=== PATIENT | female | born 1935 | race Caucasian/White ===

== ENCOUNTER → 2017-08-31 | Outpatient (CLI) | payer OTHER ==
[2017-08-31 09:15] LABS: Basophils # (auto) 0 uL; Basophils % (auto) 0.4 % (0.0-2.0); Eosinophils # (auto) 0.3 uL; Eosinophils % (auto) 3.5 % (0.0-7.0); Hematocrit 47.8 % (36.0-46.0); Hemoglobin 15.8 g/dL (12.2-16.2); Lymphocytes # (auto) 3.6 uL; Lymphocytes % (auto) 39.8 % (10.0-50.0); Mean Corpuscular Hemoglobin 31.6 pg (28.0-32.0); Mean Corpuscular Hgb Conc. 33.1 g/dL (32.0-36.0); Mean Corpuscular Volume 95.3 fL (80.0-100.0); Monocytes # (auto) 0.5 uL; Monocytes % (auto) 5.1 % (0.0-12.0); Neutrophils # (auto) 4.6 uL; Neutrophils % (auto) 51.2 % (37.0-80.0); Nucleated Red Blood Cells % 0.1 %; Platelet Count (auto) 264 10^3/uL (140-450); Red Blood Cells 5.02 10^6/uL (4.0-5.20); Red Cell Distribution Width 13.9 % (11.8-14.3); White Blood Cell 9.1 10^3/uL (4.4-10.8)
[2017-08-31 09:42] LABS: Albumin 3.6 g/dL (3.4-5.0); BUN/Creatinine Ratio 24.7; Bilirubin, Total 0.4 mg/dL (0.2-1.0); Calcium 9.8 mg/dL (8.5-10.1)
== END | disposition home or self-care (01) ==
LOC: LAB 08:22
PROVIDERS: ATTEND Physician Assistant
DX: I10 Essential (primary) hypertension (principal); M47.812 Spondylosis without myelopathy or radiculopathy, cervical region; M81.0 Age-related osteoporosis without current pathological fracture; G62.9 Polyneuropathy, unspecified; R53.82 Chronic fatigue, unspecified
CPT/HCPCS: 36415; 80053; 80061; 83036; 84403; 85025

== ENCOUNTER → 2018-12-13 | Outpatient (CLI) | payer OTHER ==
[2018-12-13 08:46] LABS: Albumin 3.5 g/dL (3.4-5.0); Calcium 9.2 mg/dL (8.5-10.1)
[2018-12-13 08:51] LABS: BUN/Creatinine Ratio 28.6; Bilirubin, Total 0.5 mg/dL (0.2-1.0); Total Protein 7.1 g/dL (6.4-8.2)
[2018-12-13 08:58] LABS: Basophils # (auto) 0 uL; Basophils % (auto) 0.6 % (0.0-2.0); Eosinophils # (auto) 0.1 uL; Eosinophils % (auto) 1.5 % (0.0-7.0); Hematocrit 45.5 % (36.0-46.0); Hemoglobin 15.1 g/dL (12.2-16.2); Lymphocytes # (auto) 2.8 uL; Mean Corpuscular Hemoglobin 31.6 pg (28.0-32.0); Mean Corpuscular Hgb Conc. 33.2 g/dL (32.0-36.0); Mean Corpuscular Volume 95.3 fL (80.0-100.0); Monocytes # (auto) 0.6 uL; Monocytes % (auto) 6.8 % (0.0-12.0); Neutrophils # (auto) 5.2 uL; Neutrophils % (auto) 59.1 % (37.0-80.0); Platelet Count (auto) 202 10^3/uL (140-450); Red Blood Cells 4.78 10^6/uL (4.0-5.20); White Blood Cell 8.8 10^3/uL (4.4-10.8)
== END | disposition home or self-care (01) ==
LOC: LAB 07:54
PROVIDERS: ATTEND Physician Assistant
DX: Z00.00 Encounter for general adult medical examination without abnormal findings (principal); M81.0 Age-related osteoporosis without current pathological fracture; G62.9 Polyneuropathy, unspecified
CPT/HCPCS: 36415; 80053; 80061; 85025

== ENCOUNTER 2019-02-02 11:55 | Inpatient (IN) | payer OTHER ==
[~2019-02-02] VITALS: Ht 147.3 cm; Wt 68.0 kg
[2019-02-02 13:17] LABS: Basophils # (auto) 0.1 uL; Basophils % (auto) 0.6 % (0.0-2.0); Eosinophils # (auto) 0.1 uL; Eosinophils % (auto) 0.7 % (0.0-7.0); Hematocrit 44.8 % (36.0-46.0); Lymphocytes # (auto) 3.3 uL; Lymphocytes % (auto) 21.7 % (10.0-50.0); Mean Corpuscular Hemoglobin 32.1 pg (28.0-32.0); Mean Corpuscular Hgb Conc. 33.4 g/dL (32.0-36.0); Monocytes # (auto) 0.7 uL; Monocytes % (auto) 4.9 % (0.0-12.0); Neutrophils % (auto) 72.1 % (37.0-80.0); Platelet Count (auto) 238 10^3/uL (140-450); Red Blood Cells 4.67 10^6/uL (4.0-5.20); Red Cell Distribution Width 14.2 % (11.8-14.3); White Blood Cell 15.2 10^3/uL (4.4-10.8)
[2019-02-02 13:31] LABS: Albumin 3.6 g/dL (3.4-5.0); Amylase 37 U/L (25-115); Anion Gap 13 (5-15); Blood Urea Nitrogen 17 mg/dL (7-18); Carbon Dioxide 25 mmol/L (21-32); Chloride 107 mmol/L (98-107); Glucose 146 mg/dL (74-106); Lipase 119 U/L (73-393); Magnesium 2.3 mg/dL (1.6-2.6); Potassium 3.7 mmol/L (3.5-5.1); Sodium 145 mmol/L (136-145)
[2019-02-02 13:38] LABS: Alanine Aminotransferase 30 U/L (13-56); Alkaline Phosphatase 50 U/L (45-117); Aspartate Aminotransferase 26 U/L (15-37); BUN/Creatinine Ratio 18.7; Bilirubin, Total 0.4 mg/dL (0.2-1.0); GFR African American 76 mL/min; GFR Non-African American 63 mL/min; Total Protein 7.4 g/dL (6.4-8.2)
[2019-02-02] MEDS ORDERED: SODIUM CHLORIDE 0.9% 1,000 ML IVB ONE (14:13)
[2019-02-02] MEDS ORDERED: ONDANSETRON HCL 4 MG/2 ML VIAL IV ONE (14:15)
[2019-02-02] MEDS ORDERED: MORPHINE SULF INJ 2 MG/ML SYRINGE 1ML IV ONE (14:15)
[2019-02-02] MEDS ORDERED: SODIUM CHLORIDE 0.9% 1,000 ML IV ONE (14:15)
[2019-02-02 15:08] LABS: INR 0.94 (0.9-1.15); Partial Thromboplastin Time 21.7 sec (23.64-32.05)
[2019-02-02] MEDS ORDERED: ONDANSETRON HCL 4 MG/2 ML VIAL IV PRN (16:45)
[2019-02-02] MEDS ORDERED: NITROGLYCERIN 0.4 MG SL TAB SL PRN (16:45)
[2019-02-02] MEDS ORDERED: ACETAMINOPHEN 500 MG TAB PO PRN (16:45)
[2019-02-02] MEDS ORDERED: MORPHINE SULF INJ 2 MG/ML SYRINGE 1ML IV PRN ×2 (16:45)
[2019-02-02 16:50] LABS: Urine Bacteria FEW /hpf (None Seen); Urine Blood 1+ /uL (Negative); Urine Specific Gravity 1.011 (1.001-1.035); Urine WBC 45 /hpf (0 - 5)
--- NOTE | 2019-02-02 18:00 | NUR ---
Telemetry admit from ER LILIYA BARNETTIAN admitted to Telemetry unit after SBAR received. Patient oriented to SHANDRA DIAMOND, RN primary RN, unit, room, bed, and unit policies regarding patient care and visiting hours. Patient alert and awake. No s/s of distress or SOB. Patient denies any pain at this time. Patient encouraged to call if they need something. All questions and concerns addressed, patient verbalized understanding. Bed in lowest and locked position with side rails upx2 and call light within reach.
--- NOTE | 2019-02-02 18:00 | NUR ---
RECEIVED REPORT FROM ANGELA MEZA.
[2019-02-02] MEDS: SODIUM CHLORIDE 0.9% 1,000 ML IV SCH (18:03)
--- NOTE | 2019-02-02 19:15 | NUR ---
Opening Shift Note Report received from day shift RN. Assumed care of patient. Patient sitting in bed awake and alert x4. No S/S of distress or SOB noted. Patient denies pain at this time. Bed in lowest position, locked with side rails up x2, and call light left within reach. Instructed on POC and to call for assist PRN, will continue to monitor for changes Q1hr and PRN.
[2019-02-02] MEDS: TAMSULOSIN HYDROCHLORIDE 0.4 MG CAP PO SCH (20:05)
[2019-02-02] MEDS: cefTRIAXone 1GM/50ML D5W 50 ML IV SCH (20:07)
[2019-02-02 22:29] VITALS: BP 148/63
[2019-02-03] MEDS: SODIUM CHLORIDE 0.9% 1,000 ML IV SCH ×4 (00:42→21:36)
[2019-02-03 06:00] LABS: Basophils # (auto) 0.1 uL; Basophils % (auto) 0.6 % (0.0-2.0); Eosinophils # (auto) 0 uL; Eosinophils % (auto) 0.2 % (0.0-7.0); Hematocrit 39.5 % (36.0-46.0); Hemoglobin 13.2 g/dL (12.2-16.2); Lymphocytes % (auto) 13.8 % (10.0-50.0); Mean Corpuscular Hemoglobin 31.7 pg (28.0-32.0); Mean Corpuscular Hgb Conc. 33.3 g/dL (32.0-36.0); Mean Corpuscular Volume 95.1 fL (80.0-100.0); Monocytes # (auto) 1.1 uL; Monocytes % (auto) 7.8 % (0.0-12.0); Neutrophils % (auto) 77.6 % (37.0-80.0); Platelet Count (auto) 176 10^3/uL (140-450); Red Blood Cells 4.16 10^6/uL (4.0-5.20); Red Cell Distribution Width 14.2 % (11.8-14.3); White Blood Cell 14.2 10^3/uL (4.4-10.8)
[2019-02-03 06:17] VITALS: BP 130/67
[2019-02-03 06:27] LABS: BUN/Creatinine Ratio 24.3; Calcium 8.3 mg/dL (8.5-10.1); Potassium 3.8 mmol/L (3.5-5.1)
[2019-02-03 06:40] LABS: Cholesterol 161 mg/dL (< 200); Triglycerides 86 mg/dL (< 150)
[2019-02-03 06:42] LABS: HDL Cholesterol 76 mg/dL (40-59); LDL Cholesterol 80 mg/dL (< 100)
--- NOTE | 2019-02-03 07:22 | NUR ---
Opening Shift Note Assumed care of patient, awake and alert. No S/S of distress or SOB. Pt denies any pain at this time. Bed in lowest and locked position with side rails up x2 and call light within reach. Instructed on POC and to call for assist PRN, will continue to monitor for changes Q1hr and PRN.
[2019-02-03 08:23] VITALS: BP 123/67
[2019-02-03 08:59] LABS: Folate (Folic Acid) 14.29 ng/mL (5.38-24)
[2019-02-03] MEDS: FAMOTIDINE 20 MG TAB PO SCH (09:31)
[2019-02-03] MEDS: HYDROcodone-ACET 5/325MG TAB PO PRN (09:35)
[2019-02-03 12:55] VITALS: BP 107/54
[2019-02-03] MEDS ORDERED: MANNITOL FTV 25% 12.5 GM/50 ML 50 ML IV ONE (13:30)
--- NOTE | 2019-02-03 16:30 | NUR ---
Thapa catheter insertion Patient assessed and determined to be in need of thapa catheter. Order obtained from MD. Patient educated on catheter and reason for insertion. All questions answered. Thapa catheter 16 guage Danish inserted with clean sterile technique. Patient tolerated well.
[2019-02-03 17:00] VITALS: BP 130/55
[2019-02-03] MEDS: cefTRIAXone 1GM/50ML D5W 50 ML IV SCH (17:41)
[2019-02-03] MEDS: TAMSULOSIN HYDROCHLORIDE 0.4 MG CAP PO SCH (17:41)
--- NOTE | 2019-02-03 19:50 | NUR ---
RECEIVED PATIENT IN BED, AAOX4. FAMILY IS IN THE ROOM. INTRODUCED MYSELF TO THE PATIENT. NO DISTRESS NOTED. AFEBRILE. MILD BLE WEAKNESS NOTED. POCS DISCUSSED WITH PATIENT AND FAMILY AND SHOWED UNDERSTANDING. BED KEPT ON LOWEST POSITION. SIDE RAILS UP. CALL LIGHT/TABLE IN REACH. KEPT COMFORTABLE.
[2019-02-03 22:00] VITALS: BP 122/69
[2019-02-04 05:50] VITALS: BP 150/75
--- NOTE | 2019-02-04 06:08 | NUR ---
ON BED, AWAKE. STABLE. NO DISTRESS NOTED. FOR MORE CARE AND MANAGEMENT.
[2019-02-04 06:57] LABS: Basophils # (auto) 0.1 uL; Basophils % (auto) 0.5 % (0.0-2.0); Eosinophils # (auto) 0.1 uL; Eosinophils % (auto) 1.3 % (0.0-7.0); Hematocrit 38.4 % (36.0-46.0); Hemoglobin 12.8 g/dL (12.2-16.2); Lymphocytes # (auto) 1.9 uL; Lymphocytes % (auto) 16.7 % (10.0-50.0); Mean Corpuscular Hemoglobin 32.1 pg (28.0-32.0); Mean Corpuscular Hgb Conc. 33.3 g/dL (32.0-36.0); Mean Corpuscular Volume 96.1 fL (80.0-100.0); Monocytes # (auto) 0.8 uL; Monocytes % (auto) 6.8 % (0.0-12.0); Neutrophils # (auto) 8.5 uL; Neutrophils % (auto) 74.7 % (37.0-80.0); Nucleated Red Blood Cells % 0.1 %; Platelet Count (auto) 145 10^3/uL (140-450); Red Blood Cells 3.99 10^6/uL (4.0-5.20); Red Cell Distribution Width 14.3 % (11.8-14.3); White Blood Cell 11.3 10^3/uL (4.4-10.8)
--- NOTE | 2019-02-04 07:15 | NUR ---
Opening Shift Note Assumed care of patient, awake and alert. No S/S of distress or SOB. Pt denies any pain at this time. Bed in lowest and locked position with side rails up x2 and call light within reach. Instructed on POC and to call for assist PRN, will continue to monitor for changes Q1hr and PRN.family at bedside visiting.
[2019-02-04 07:36] LABS: BUN/Creatinine Ratio 16.1; Calcium 8.1 mg/dL (8.5-10.1); Potassium 3.6 mmol/L (3.5-5.1)
--- NOTE | 2019-02-04 08:20 | NUR ---
[facility] HERE TO SEE AND EXAMINED PATIENT,STATED PATIENT CLEARED FOR DISCHARGE
[2019-02-04] MEDS: SODIUM CHLORIDE 0.9% 1,000 ML IV SCH ×3 (08:42→21:41)
[2019-02-04 09:00] VITALS: BP 139/71
[2019-02-04] MEDS: FAMOTIDINE 20 MG TAB PO SCH (10:18)
[2019-02-04 13:00] VITALS: BP 157/89
--- NOTE | 2019-02-04 15:37 | NUR ---
RESTING QUIETLU NO DISTRESS NO DISCOMFORT
[2019-02-04 17:00] VITALS: BP 171/81
--- NOTE | 2019-02-04 17:30 | NUR ---
[id number]
--- NOTE | 2019-02-04 18:00 | NUR ---
BP RE CHECKED 161/71
--- NOTE | 2019-02-04 18:15 | NUR ---
PAGED HOSPITALIST PRINTED CIRCUIT BOARDS PINNER,INFORMED OF HIGH BP RECEIVED ORDER,SEE ORDER WRITTEN.
[2019-02-04] MEDS: cefTRIAXone 1GM/50ML D5W 50 ML IV SCH (18:24)
[2019-02-04] MEDS: TAMSULOSIN HYDROCHLORIDE 0.4 MG CAP PO SCH (18:24)
[2019-02-04] MEDS ORDERED: amLODIPine BESYLATE 5 MG TAB PO ONE (18:30)
[2019-02-04 20:00] VITALS: BP 155/76
--- NOTE | 2019-02-04 20:00 | NUR ---
RECEIVED PATIENT IN BED, AAOX4. INTRODUCED MYSELF TO THE PATIENT. NO DISTRESS NOTED. AFEBRILE. MILD BLE WEAKNESS NOTED. COMPLAINED OF MILD HEADACHE. WILL MEDICATE PATIENT. IV ACCESS IS INFILTRATED. STARTED A NEW IV ACCESS ON THE LEFT FOREARM, GAUGE 22. BENIGN AND PATENT. POCS DISCUSSED WITH PATIENT AND SHOWED UNDERSTANDING. BED KEPT ON LOWEST POSITION. SIDE RAILS UP. CALL LIGHT/TABLE IN REACH. KEPT COMFORTABLE.
[2019-02-04] MEDS: HYDROcodone-ACET 5/325MG TAB PO PRN (21:41)
[2019-02-04 22:30] VITALS: BP 154/76
[2019-02-05] VITALS (7 sets, daily range): BP systolic 129–160; BP diastolic 69–77
--- NOTE | 2019-02-05 06:38 | NUR ---
ON BED, ASLEEP. STABLE. NO DISTRESS NOTED. FOR MORE CARE AND MANAGEMENT.
[2019-02-05 06:40] LABS: Basophils # (auto) 0.1 uL; Basophils % (auto) 0.6 % (0.0-2.0); Eosinophils # (auto) 0.1 uL; Eosinophils % (auto) 1.6 % (0.0-7.0); Hematocrit 40.1 % (36.0-46.0); Hemoglobin 13.4 g/dL (12.2-16.2); Lymphocytes # (auto) 1.9 uL; Lymphocytes % (auto) 20.8 % (10.0-50.0); Mean Corpuscular Hemoglobin 32.2 pg (28.0-32.0); Mean Corpuscular Hgb Conc. 33.5 g/dL (32.0-36.0); Mean Corpuscular Volume 96.1 fL (80.0-100.0); Monocytes # (auto) 0.9 uL; Monocytes % (auto) 9.5 % (0.0-12.0); Neutrophils # (auto) 6.1 uL; Neutrophils % (auto) 67.5 % (37.0-80.0); Platelet Count (auto) 159 10^3/uL (140-450); Red Blood Cells 4.17 10^6/uL (4.0-5.20); Red Cell Distribution Width 13.5 % (11.8-14.3)
[2019-02-05] MEDS: SODIUM CHLORIDE 0.9% 1,000 ML IV SCH ×2 (07:15→17:15)
--- NOTE | 2019-02-05 08:26 | NUR ---
RECEIVED CALL FROM [facility]INE SENSITIVITY POSITIVE FOR ESBL
[2019-02-05] MEDS: amLODIPine BESYLATE 5 MG TAB PO SCH (09:25)
[2019-02-05] MEDS: FAMOTIDINE 20 MG TAB PO SCH (09:25)
--- NOTE | 2019-02-05 10:17 | NUR ---
PATIENT MOVED TO ROOM 203 FOR CONTACT ISOLATION
--- NOTE | 2019-02-05 10:55 | NUR ---
MD VISIT DR. SOW MADE AWARE OF POSITIVE ESBL IN THE URINE RECEIVED ORDERS
[2019-02-05] MEDS ORDERED: ERTAPENEM SOD INJ 1 GM in SODIUM CHL 0.9% 50 ML IV ONE (11:00)
--- NOTE | 2019-02-05 11:31 | NUR ---
I faxed home IV ATB/home health order to [facility] and [facility].
--- NOTE | 2019-02-05 12:17 | NUR ---
Nutrition Assessment Notes please see attached link for complete assessment Est. Needs based on ABW (55 kg): 1265-1375kcal (23-25 kcal/kgBW), 55-60 gms pro (1.0-1.1 gms/kgBW). Will continue to monitor pertinent labs and reassess nutrient need prn Addendum: 02/05/19 at [address] Amended: Links added.
[2019-02-05] MEDS: NEOMYCIN-POLYM-HC 1% OTIC(EAR) SOLN 10ML LEFT EAR SCH ×2 (13:09→18:22)
--- NOTE | 2019-02-05 13:20 | NUR ---
LUCIO CATHETER DISCONTINUED ORDERED
--- NOTE | 2019-02-05 15:00 | NUR ---
PATIENT VOIDED NO DIFFICULTY
--- NOTE | 2019-02-05 15:05 | NUR ---
Midline Placement: Patient educated on need for midline placement. All risks and benefits explained and all questions and concerns addresses prior to procedure. 18g/10cm midline inserted via RT BASILIC vein using Ultrasound. Sterile technique utilized. Blood return obtained from SINGLE lumen and flushed easily with NS using proper technique. Midline secured with saline lock; biodisc and occlusive dressing applied. Primary RN notified. Midline lot # [id number].
--- NOTE | 2019-02-05 15:59 | NUR ---
I spoke with Naima at [facility], she said they are willing to accept this patient, I told her I would call her tomorrow when I have the actual discharge order. I also spoke with Neville at [facility], they are willing to accept this patient, I let him know that I would call tomorrow when I have the actual discharge order.
[2019-02-06] MEDS: SODIUM CHLORIDE 0.9% 1,000 ML IV SCH ×2 (03:15→13:29)
[2019-02-06 05:36] VITALS: BP 155/68
--- NOTE | 2019-02-06 07:45 | NUR ---
Opening Patient in bed, bed in lowest position, call light within reach. No distress noted at this time. Urology consult completed with Rosemarie, notes to have patient f/u for EDWL in 1-2 weeks post discharge. XR abd negative Abd/Pelvis ct L hydroureter nephrosis 4 mm calculus Diverticulosis ef 60% potassium 3.6 calcium 8.1 low aptt 21.7 urine culture esbl confirmed patient on isolation [facility] IV d/c thapa catheter prior discharge will f/u with morning assessment
[2019-02-06 09:00] VITALS: BP 151/73
[2019-02-06] MEDS ORDERED: NITROFURANTOIN (MONO) 100 mg CAP PO SCH (10:00)
[2019-02-06] MEDS ORDERED: ERTAPENEM SOD INJ 1 GM in SODIUM CHL 0.9% 50 ML IV SCH (10:00)
[2019-02-06] MEDS: amLODIPine BESYLATE 5 MG TAB PO SCH (10:56)
[2019-02-06] MEDS: FAMOTIDINE 20 MG TAB PO SCH (10:56)
[2019-02-06] MEDS: NEOMYCIN-POLYM-HC 1% OTIC(EAR) SOLN 10ML LEFT EAR SCH ×2 (10:57)
[2019-02-06 12:31] VITALS: BP 151/73
[2019-02-06 13:00] VITALS: BP 138/72
--- NOTE | 2019-02-06 13:16 | NUR ---
I spoke with Gloria at [facility] to let her know that patient is discharging home today, she said they will deliver between 8-10pm this evening-they will call patient/family to arrange the delivery. [facility]
--- NOTE | 2019-02-06 14:00 | NUR ---
I spoke with Naima at [facility] to let her know that patient is discharging home today, she said they will visit patient tomorrow. [facility] to deliver IV ATB to patient's home this evening-I relayed this information to nurse Oleary as well as giving her the phone numbers for both [facility] and [facility] to give to the patient/family.
--- NOTE | 2019-02-06 14:00 | NUR ---
Jillian taylor [facility] set up [phone] [facility] set up [phone]
--- NOTE | 2019-02-06 14:44 | NUR ---
assessment Patient is a 83 year old female who is alert and oriented. Prior to admission patient lived home with her friend and functioned independently. Patient informed me her PCP is Elisabeth Sevilla. Patient informed me she has help at home for the IV ABX. Patient has no need for DME. Patient has no advanced directive and does not want one at this time. Patient verbalized understanding and agreed to discharge plan home with IV ABX. Addendum: 02/06/19 at 1503 by Anay ROBERTS Amended: Links added.
== END 2019-02-06 16:54 | disposition home or self-care (01) | DRG 872 ==
LOC: ER 11:55 → OVERFLOW 11:56 → CENTRAL 18:19
PROVIDERS: ADMIT Nurse Practitioner Acute Care; ATTEND Internal Medicine
DX: A41.9 Sepsis, unspecified organism (principal); N13.6 Pyonephrosis; E66.9 Obesity, unspecified; E78.00 Pure hypercholesterolemia, unspecified; I12.9 Hypertensive chronic kidney disease with stage 1 through stage 4 chronic kidney disease, or unspecified chronic kidney disease; N18.3 Chronic kidney disease, stage 3 (moderate); H92.02 Otalgia, left ear; E78.5 Hyperlipidemia, unspecified; B96.20 Unspecified Escherichia coli [E. coli] as the cause of diseases classified elsewhere; M16.11 Unilateral primary osteoarthritis, right hip; Z16.12 Extended spectrum beta lactamase (ESBL) resistance; Z90.710 Acquired absence of both cervix and uterus; Z82.49 Family history of ischemic heart disease and other diseases of the circulatory system; Z87.440 Personal history of urinary (tract) infections; Z68.31 Body mass index [BMI] 31.0-31.9, adult; Z79.899 Other long term (current) drug therapy
CPT/HCPCS: 36415; 74018; 74176; 80048; 80053; 80061; 81001; 82150; 82607; 82746; 83690; 83735; 84425; 84443; 84484; 85025; 85610; 85730; 87086; 87088; 87186; 93005; 93306; 94761; 96374; 96375; G0378; J0696; J1335; J2405

== ENCOUNTER 2019-02-14 14:08 | Emergency (ER) | payer OTHER ==
[~2019-02-14] VITALS: Ht 147.3 cm; Wt 68.0 kg
[2019-02-14 14:43] LABS: Basophils # (auto) 0.1 uL; Basophils % (auto) 0.8 % (0.0-2.0); Eosinophils # (auto) 0.2 uL; Eosinophils % (auto) 1.9 % (0.0-7.0); Hematocrit 45.4 % (36.0-46.0); Hemoglobin 15.1 g/dL (12.2-16.2); Lymphocytes % (auto) 32.6 % (10.0-50.0); Mean Corpuscular Hemoglobin 31.7 pg (28.0-32.0); Mean Corpuscular Hgb Conc. 33.3 g/dL (32.0-36.0); Mean Corpuscular Volume 95.4 fL (80.0-100.0); Monocytes # (auto) 0.5 uL; Monocytes % (auto) 5.2 % (0.0-12.0); Neutrophils # (auto) 5.5 uL; Neutrophils % (auto) 59.5 % (37.0-80.0); Platelet Count (auto) 293 10^3/uL (140-450); Red Blood Cells 4.76 10^6/uL (4.0-5.20); Red Cell Distribution Width 13.5 % (11.8-14.3); White Blood Cell 9.2 10^3/uL (4.4-10.8)
[2019-02-14 15:03] LABS: Albumin 3.3 g/dL (3.4-5.0); Anion Gap 5 (5-15); Blood Urea Nitrogen 17 mg/dL (7-18); Calcium 9.2 mg/dL (8.5-10.1); Carbon Dioxide 29 mmol/L (21-32); Chloride 108 mmol/L (98-107); Glucose 152 mg/dL (74-106); Magnesium 2.3 mg/dL (1.6-2.6); Potassium 4.1 mmol/L (3.5-5.1); Sodium 142 mmol/L (136-145)
[2019-02-14 15:06] LABS: Alanine Aminotransferase 53 U/L (13-56); Alkaline Phosphatase 70 U/L (45-117); Aspartate Aminotransferase 45 U/L (15-37); Bilirubin, Total 0.2 mg/dL (0.2-1.0); GFR African American 87 mL/min; GFR Non-African American 72 mL/min; Total Protein 7.7 g/dL (6.4-8.2)
[2019-02-14] MEDS ORDERED: PANTOPRAZOLE 40 MG TAB PO ONE (16:00)
[2019-02-14 16:41] LABS: INR 0.95 (0.9-1.15); Partial Thromboplastin Time 25.4 sec (23.64-32.05)
[2019-02-14 18:19] VITALS: BP 143/69
== END 2019-02-14 18:24 | disposition home or self-care (01) ==
LOC: ER 14:08
DX: K29.70 Gastritis, unspecified, without bleeding (principal); E78.5 Hyperlipidemia, unspecified; Z90.710 Acquired absence of both cervix and uterus; Z87.442 Personal history of urinary calculi
CPT/HCPCS: 36415; 80053; 81002; 83735; 84484; 85025; 85610; 85730; 93005

== ENCOUNTER 2022-05-19 10:13 | Emergency (ER) | payer OTHER ==
[~2022-05-19] VITALS: Ht 147.3 cm; Wt 63.8 kg
[2022-05-19] MEDS ORDERED: cloNIDine HCL 0.1 MG TAB PO ONE (11:00)
[2022-05-19] MEDS ORDERED: AZIT1POW PO (11:51)
[2022-05-19] MEDS ORDERED: METH4PAK PO (11:51)
[2022-05-19] MEDS ORDERED: LOSA25TA38 PO (12:50)
[2022-05-19 12:55] VITALS: BP 126/75
== END 2022-05-19 13:01 | disposition home or self-care (01) ==
LOC: ER 10:13
DX: I16.0 Hypertensive urgency (principal); J20.9 Acute bronchitis, unspecified; E78.5 Hyperlipidemia, unspecified; I10 Essential (primary) hypertension; Z90.710 Acquired absence of both cervix and uterus; Z85.3 Personal history of malignant neoplasm of breast; Z20.822 Contact with and (suspected) exposure to COVID-19
CPT/HCPCS: 36415; 71045; 87426; 93005

== ENCOUNTER → 2022-05-23 | Outpatient (CLI) | payer OTHER ==
[~2022-05-23] MED LIST: AZIT1POW PO; LOSA25TA38 PO; METH4PAK PO
[2022-05-23 07:48] LABS: Basophils # (auto) 0.1 10 ^3/uL (0-0.2); Basophils % (auto) 0.6 % (0.0-2.0); Eosinophils # (auto) 0 10 ^3/uL (0-0.8); Hematocrit 48.4 % (36.0-46.0); Hemoglobin 15.7 g/dL (12.2-16.2); Lymphocytes # (auto) 2.5 10 ^3/uL (0.4-5.4); Lymphocytes % (auto) 17.8 % (10.0-50.0); Mean Corpuscular Hemoglobin 30.1 pg (28.0-32.0); Mean Corpuscular Hgb Conc. 32.4 g/dL (32.0-36.0); Monocytes # (auto) 0.6 10 ^3/uL (0-1.3); Monocytes % (auto) 4.1 % (0.0-12.0); Neutrophils # (auto) 11.1 10 ^3/uL (1.6-8.6); Neutrophils % (auto) 77.5 % (37.0-80.0); Red Cell Distribution Width 14.4 % (11.8-14.3); White Blood Cell 14.3 10^3/uL (4.4-10.8)
[2022-05-23 07:58] LABS: Urine Bacteria FEW /hpf (None Seen); Urine Blood Negative /uL (Negative); Urine Mucus FEW (None Seen); Urine Specific Gravity 1.015 (1.001-1.035); Urine WBC 8 /hpf (0 - 5)
[2022-05-23 08:29] LABS: Albumin 3.2 g/dL (3.4-5.0); BUN/Creatinine Ratio 19.8; Bilirubin, Total 0.4 mg/dL (0.2-1.0); Calcium 9.4 mg/dL (8.5-10.1); Potassium 4.9 mmol/L (3.5-5.1); Total Protein 7.3 g/dL (6.4-8.2)
== END | disposition home or self-care (01) ==
LOC: LAB 07:35
PROVIDERS: ATTEND Internal Medicine
DX: I10 Essential (primary) hypertension (principal)
CPT/HCPCS: 36415; 80053; 80061; 81001; 83036; 84439; 84443; 85025

== ENCOUNTER 2022-06-05 12:40 | Outpatient (CLI) | payer OTHER ==
[2022-06-05 13:11] LABS: Basophils # (auto) 0 10 ^3/uL (0-0.2); Basophils % (auto) 0.4 % (0.0-2.0); Eosinophils # (auto) 0.1 10 ^3/uL (0-0.8); Eosinophils % (auto) 1.3 % (0.0-7.0); Hematocrit 48.2 % (36.0-46.0); Hemoglobin 15.5 g/dL (12.2-16.2); Lymphocytes # (auto) 3.1 10 ^3/uL (0.4-5.4); Lymphocytes % (auto) 28.3 % (10.0-50.0); Mean Corpuscular Hemoglobin 30.1 pg (28.0-32.0); Mean Corpuscular Hgb Conc. 32.1 g/dL (32.0-36.0); Mean Corpuscular Volume 93.9 fL (80.0-100.0); Monocytes # (auto) 0.5 10 ^3/uL (0-1.3); Monocytes % (auto) 4.9 % (0.0-12.0); Neutrophils # (auto) 7.2 10 ^3/uL (1.6-8.6); Neutrophils % (auto) 65.1 % (37.0-80.0); Nucleated Red Blood Cells % 0.1 %; Red Blood Cells 5.13 10^6/uL (4.0-5.20); Red Cell Distribution Width 14.8 % (11.8-14.3)
[2022-06-05 13:45] LABS: Potassium 4.4 mmol/L (3.5-5.1)
[2022-06-05 13:57] LABS: BUN/Creatinine Ratio 24.2; Calcium 9.3 mg/dL (8.5-10.1)
== END 2022-06-05 12:50 | disposition home or self-care (01) ==
LOC: LAB 12:40
PROVIDERS: ATTEND Internal Medicine
DX: I10 Essential (primary) hypertension (principal)
CPT/HCPCS: 36415; 80048; 85025

== ENCOUNTER → 2022-06-20 | Outpatient (CLI) | payer OTHER ==
[2022-06-20 13:28] LABS: Basophils # (auto) 0.1 10 ^3/uL (0-0.2); Basophils % (auto) 0.7 % (0.0-2.0); Eosinophils # (auto) 0.2 10 ^3/uL (0-0.8); Eosinophils % (auto) 1.9 % (0.0-7.0); Hemoglobin 14.9 g/dL (12.2-16.2); Lymphocytes % (auto) 31.9 % (10.0-50.0); Mean Corpuscular Hemoglobin 30.9 pg (28.0-32.0); Mean Corpuscular Volume 93.6 fL (80.0-100.0); Monocytes # (auto) 0.3 10 ^3/uL (0-1.3); Monocytes % (auto) 3.4 % (0.0-12.0); Neutrophils # (auto) 5.9 10 ^3/uL (1.6-8.6); Neutrophils % (auto) 62.1 % (37.0-80.0); Nucleated Red Blood Cells % 0.1 %; Red Blood Cells 4.81 10^6/uL (4.0-5.20); Red Cell Distribution Width 14.8 % (11.8-14.3); White Blood Cell 9.4 10^3/uL (4.4-10.8)
[2022-06-20 14:03] LABS: Calcium 9.2 mg/dL (8.5-10.1); Potassium 3.8 mmol/L (3.5-5.1)
== END | disposition home or self-care (01) ==
LOC: LAB 12:56
PROVIDERS: ATTEND Internal Medicine
DX: I10 Essential (primary) hypertension (principal); D72.829 Elevated white blood cell count, unspecified
CPT/HCPCS: 36415; 80048; 85025

== ENCOUNTER → 2022-07-25 | Outpatient (CLI) | payer OTHER ==
[2022-07-25 15:53] LABS: BUN/Creatinine Ratio 36.8; Calcium 9.8 mg/dL (8.5-10.1); Potassium 3.6 mmol/L (3.5-5.1)
== END | disposition home or self-care (01) ==
LOC: LAB 15:15
PROVIDERS: ATTEND Internal Medicine
DX: I10 Essential (primary) hypertension (principal); M81.0 Age-related osteoporosis without current pathological fracture
CPT/HCPCS: 36415; 80048; 82306

== ENCOUNTER → 2022-08-07 | Outpatient (CLI) | payer OTHER ==
[2022-08-07 12:38] LABS: Potassium 3.7 mmol/L (3.5-5.1)
[2022-08-07 12:44] LABS: BUN/Creatinine Ratio 30.3
== END | disposition home or self-care (01) ==
LOC: LAB 11:02
PROVIDERS: ATTEND Internal Medicine
DX: I10 Essential (primary) hypertension (principal); N28.9 Disorder of kidney and ureter, unspecified
CPT/HCPCS: 36415; 80048

== ENCOUNTER → 2022-08-16 | Outpatient (CLI) | payer OTHER ==
[~2022-08-16] MED LIST changes: +BUPIVACAINE HCL 0.25% P/F 10 ML VIAL ONE; +IOHEXOL 300 MG/ML 100ML BOTTLE IJ ONE; +LIDOCAINE 2%HCL (LOCAL ANESTH.) INJ 10ml MDV ONE; +methylPREDNISolone ACETATE 80 MG/ML VL ONE
== END | disposition home or self-care (01) ==
LOC: XY 10:02
PROVIDERS: ATTEND Orthopaedic Surgery Adult Reconstructive Orthopaedic Surgery
DX: M19.012 Primary osteoarthritis, left shoulder (principal)
CPT/HCPCS: 20610; 73020; 76000; J1040; J2001; J3490; Q9967

== ENCOUNTER → 2022-09-05 | Outpatient (CLI) | payer OTHER ==
[~2022-09-05] MED LIST changes: -BUPIVACAINE HCL 0.25% P/F 10 ML VIAL ONE; -IOHEXOL 300 MG/ML 100ML BOTTLE IJ ONE; -LIDOCAINE 2%HCL (LOCAL ANESTH.) INJ 10ml MDV ONE; -methylPREDNISolone ACETATE 80 MG/ML VL ONE
[2022-09-05 15:56] LABS: BUN/Creatinine Ratio 40.3; Calcium 9.2 mg/dL (8.5-10.1); Potassium 4.1 mmol/L (3.5-5.1)
== END | disposition home or self-care (01) ==
LOC: LAB 15:01
PROVIDERS: ATTEND Internal Medicine
DX: N28.9 Disorder of kidney and ureter, unspecified (principal)
CPT/HCPCS: 36415; 80048

== ENCOUNTER → 2022-10-04 | Outpatient (CLI) | payer OTHER ==
[2022-10-04 12:50] LABS: Urine Bacteria FEW /hpf (None Seen); Urine Blood Negative /uL (Negative); Urine Specific Gravity 1.012 (1.001-1.035); Urine WBC 10 /hpf (0 - 5)
[2022-10-04 13:00] LABS: BUN/Creatinine Ratio 35.7 (10.0-20.0)
== END | disposition home or self-care (01) ==
LOC: LAB 12:09
PROVIDERS: ATTEND Internal Medicine
DX: I10 Essential (primary) hypertension (principal); N28.9 Disorder of kidney and ureter, unspecified
CPT/HCPCS: 36415; 80048; 81001

== ENCOUNTER → 2023-04-24 | Outpatient (CLI) | payer OTHER ==
[~2023-04-24] MED LIST changes: +LOSA25TA15 PO; -LOSA25TA38 PO
[2023-04-24 09:55] LABS: Basophils # (auto) 0.1 10 ^3/uL (0-0.2); Basophils % (auto) 0.8 % (0.0-2.0); Eosinophils # (auto) 0.4 10 ^3/uL (0-0.8); Eosinophils % (auto) 4.5 % (0.0-7.0); Hematocrit 40.5 % (36.0-46.0); Hemoglobin 13.6 g/dL (12.2-16.2); Lymphocytes % (auto) 37.1 % (10.0-50.0); Mean Corpuscular Hemoglobin 31.4 pg (28.0-32.0); Mean Corpuscular Hgb Conc. 33.5 g/dL (32.0-36.0); Mean Corpuscular Volume 93.8 fL (80.0-100.0); Monocytes # (auto) 0.4 10 ^3/uL (0-1.3); Monocytes % (auto) 5.4 % (0.0-12.0); Neutrophils # (auto) 4.3 10 ^3/uL (1.6-8.6); Neutrophils % (auto) 52.2 % (37.0-80.0); Nucleated Red Blood Cells % 0.1 %; Red Blood Cells 4.32 10^6/uL (4.0-5.20); Red Cell Distribution Width 14.4 % (11.8-14.3); White Blood Cell 8.2 10^3/uL (4.4-10.8)
[2023-04-24 10:10] LABS: Urine Bacteria NONE SEEN /hpf (None Seen); Urine Blood Negative /uL (Negative); Urine Clarity Clear (Clear); Urine Color Yellow (Yellow); Urine Protein, UAD Negative (Negative); Urine Specific Gravity 1.018 (1.001-1.035); Urine Urobilinogen Normal (Negative); Urine WBC 2 /hpf (0 - 5)
[2023-04-24 10:28] LABS: Alanine Aminotransferase 37 U/L (7-40); Albumin 4.6 g/dL (3.2-4.8); Alkaline Phosphatase 72 U/L (46-116); Anion Gap 6 (5-15); Aspartate Aminotransferase 27 U/L (13-40); BUN/Creatinine Ratio 20.6 (10.0-20.0); Bilirubin, Total 0.6 mg/dL (0.2-1.0); Blood Urea Nitrogen 14 mg/dL (9-23); Calcium 9.7 mg/dL (8.5-10.1); Carbon Dioxide 30 mmol/L (20-30); Chloride 102 mmol/L (98-107); Cholesterol 152 mg/dL (< 200); Glucose 106 mg/dL (74-106); HDL Cholesterol 64 mg/dL (40-59); LDL Cholesterol 64 mg/dL (< 100); Potassium 3.7 mmol/L (3.5-5.1); Sodium 138 mmol/L (136-145); Triglycerides 116 mg/dL (< 150)
[2023-04-24 11:53] LABS: Total Protein < 2.0 g/dL (5.7-8.2)
== END | disposition home or self-care (01) ==
LOC: LAB 09:28
PROVIDERS: ATTEND Internal Medicine
DX: I12.9 Hypertensive chronic kidney disease with stage 1 through stage 4 chronic kidney disease, or unspecified chronic kidney disease (principal); N18.2 Chronic kidney disease, stage 2 (mild); N28.9 Disorder of kidney and ureter, unspecified; R80.0 Isolated proteinuria
CPT/HCPCS: 36415; 80053; 80061; 81001; 82306; 83036; 84439; 84443; 85025

== ENCOUNTER → 2023-05-16 | Outpatient (CLI) | payer OTHER ==
[~2023-05-16] MED LIST changes: +BUPIVACAINE HCL 0.25% P/F 10 ML VIAL ONE; +IOHEXOL 300 MG/ML 100ML BOTTLE IJ ONE; +LIDOCAINE 2%HCL (LOCAL ANESTH.) INJ 10ml MDV ONE; +methylPREDNISolone ACETATE 80 MG/ML VL ONE
== END | disposition home or self-care (01) ==
LOC: XY 11:25
PROVIDERS: ATTEND Orthopaedic Surgery
DX: M19.012 Primary osteoarthritis, left shoulder (principal)
CPT/HCPCS: 20610; 73020; 76000; J1040; J2001; J3490; Q9967

== ENCOUNTER → 2024-01-25 | Outpatient (CLI) | payer OTHER ==
[~2024-01-25] MED LIST changes: -BUPIVACAINE HCL 0.25% P/F 10 ML VIAL ONE; -IOHEXOL 300 MG/ML 100ML BOTTLE IJ ONE; -LIDOCAINE 2%HCL (LOCAL ANESTH.) INJ 10ml MDV ONE; +LOSA-533 PO; -LOSA25TA15 PO; -methylPREDNISolone ACETATE 80 MG/ML VL ONE
== END | disposition home or self-care (01) ==
LOC: LAB 10:30
PROVIDERS: ATTEND Family Medicine
DX: D48.5 Neoplasm of uncertain behavior of skin (principal)

== ENCOUNTER 2024-03-13 08:55 | Day surgery (SDC) | payer OTHER ==
[2024-03-12 09:55] LABS: Urine Bacteria None Seen /hpf (None Seen)
[2024-03-12 10:16] LABS: Basophils # (auto) 0 10 ^3/uL (0-0.2); Basophils % (auto) 0.5 % (0.0-2.0); Eosinophils # (auto) 0.2 10 ^3/uL (0-0.8); Eosinophils % (auto) 2.3 % (0.0-7.0); Hematocrit 43.3 % (36.0-46.0); Hemoglobin 14.9 g/dL (12.2-16.2); Lymphocytes # (auto) 2.6 10 ^3/uL (0.4-5.4); Lymphocytes % (auto) 28.2 % (10.0-50.0); Mean Corpuscular Hemoglobin 32.3 pg (28.0-32.0); Mean Corpuscular Hgb Conc. 34.4 g/dL (32.0-36.0); Monocytes # (auto) 0.5 10 ^3/uL (0-1.3); Monocytes % (auto) 5.6 % (0.0-12.0); Neutrophils # (auto) 5.9 10 ^3/uL (1.6-8.6); Neutrophils % (auto) 63.4 % (37.0-80.0); Platelet Count (auto) 240 10^3/uL (140-450); Red Blood Cells 4.61 10^6/uL (4.0-5.20); Red Cell Distribution Width 14.5 % (11.8-14.3); White Blood Cell 9.3 10^3/uL (4.4-10.8)
[2024-03-12 10:23] LABS: Urine Blood Negative /uL (Negative); Urine Clarity Clear (Clear); Urine Color Yellow (Yellow); Urine Mucus FEW (None Seen); Urine Protein, UAD TRACE (Negative); Urine Specific Gravity 1.024 (1.001-1.035); Urine Urobilinogen Normal (Negative); Urine WBC 2 /hpf (0 - 5); Urine pH 6.5 (5.0-9.0)
[2024-03-12 10:26] LABS: Partial Thromboplastin Time 24.8 SEC (24.5-34.5); Prothrombin Time 10.8 sec (9.3-11.8)
[2024-03-12 10:41] LABS: Alanine Aminotransferase 24 U/L (7-40); Albumin 4.4 g/dL (3.2-4.8); Alkaline Phosphatase 57 U/L (46-116); Anion Gap 5 (5-15); Aspartate Aminotransferase 20 U/L (13-40); BUN/Creatinine Ratio 27.6 (10.0-20.0); Blood Urea Nitrogen 21 mg/dL (9-23); Calcium 9.9 mg/dL (8.7-10.4); Carbon Dioxide 30 mmol/L (20-30); Chloride 104 mmol/L (98-107); Glucose 104 mg/dL (74-106); Potassium 3.9 mmol/L (3.5-5.1); Sodium 139 mmol/L (136-145)
[2024-03-12 10:42] LABS: Bilirubin, Total 0.7 mg/dL (0.2-1.0); Total Protein 7.2 g/dL (5.7-8.2)
[~2024-03-13 08:55] MED LIST changes: +ALEN70SO2 OR; +AMLO1TAB23 PO; +ATOR-507 PO; -AZIT1POW PO; +GABA-339 PO; +HYDR25TA4 PO; -METH4PAK PO; +ROSU10TA16 PO
[2024-03-13] MEDS ORDERED: CIPROFLOXACIN 400MG/200ML 200 ML IV ONE (09:56)
[2024-03-13] MEDS ORDERED: ONDANSETRON HCL 4 MG/2 ML VIAL IV ONE (10:00)
[2024-03-13] MEDS ORDERED: fentaNYL CITRATE 100 MCG/2 ML VL ONE (10:02)
[2024-03-13] MEDS ORDERED: MIDAZOLAM HCL 2MG/2ML 2ml VIAL (1mg/ml) ONE (10:02)
[2024-03-13] MEDS ORDERED: PROPOFOL 10 MG/ML 20 ML IV ONE (10:17)
[2024-03-13] MEDS ORDERED: ONDANSETRON HCL 4 MG/2 ML VIAL ONE (10:17)
[2024-03-13] MEDS ORDERED: KETAMINE 50mg/ML 1ml syringe ONE (10:27)
[2024-03-13 10:37] VITALS: TEMP 97.2
[2024-03-13] MEDS ORDERED: ePHEDrine SULFATE 50 MG/ML AMP ONE (10:42)
[2024-03-13 11:22] VITALS: BP 109/48; PULSE 71; RESP 14; O2SAT 100
== END 2024-03-13 11:25 | disposition home or self-care (01) ==
LOC: SUR 08:55
PROVIDERS: ATTEND Urology
DX: N36.42 Intrinsic sphincter deficiency (ISD) (principal); N39.3 Stress incontinence (female) (male); I10 Essential (primary) hypertension; Z90.710 Acquired absence of both cervix and uterus; Z98.41 Cataract extraction status, right eye; Z98.42 Cataract extraction status, left eye; Z98.890 Other specified postprocedural states
CPT/HCPCS: 36415; 51715; 72170; 76000; 80053; 81001; 85025; 85610; 85730; 87086; 87088; J0744; J2250; J2405; J2704; J3010; L8606

== ENCOUNTER 2024-12-29 11:18 | Outpatient (CLI) | payer OTHER ==
[2024-12-29 11:31] LABS: Urine Bacteria None Seen /hpf (None Seen)
[2024-12-29 11:40] LABS: Basophils # (auto) 0.1 10 ^3/uL (0-0.2); Basophils % (auto) 0.8 % (0.0-2.0); Eosinophils # (auto) 0.3 10 ^3/uL (0-0.8); Eosinophils % (auto) 3.3 % (0.0-7.0); Hematocrit 41.9 % (36.0-46.0); Lymphocytes # (auto) 3.1 10 ^3/uL (0.4-5.4); Lymphocytes % (auto) 31.8 % (10.0-50.0); Mean Corpuscular Hemoglobin 31.3 pg (28.0-32.0); Mean Corpuscular Hgb Conc. 33.5 g/dL (32.0-36.0); Mean Corpuscular Volume 93.5 fL (80.0-100.0); Monocytes # (auto) 0.5 10 ^3/uL (0-1.3); Monocytes % (auto) 5.3 % (0.0-12.0); Neutrophils # (auto) 5.7 10 ^3/uL (1.6-8.6); Neutrophils % (auto) 58.8 % (37.0-80.0); Platelet Count (auto) 208 10^3/uL (140-450); Red Blood Cells 4.48 10^6/uL (4.0-5.20); Red Cell Distribution Width 14.7 % (11.8-14.3); White Blood Cell 9.8 10^3/uL (4.4-10.8)
[2024-12-29 12:10] LABS: Alanine Aminotransferase 14 U/L (7-40); Albumin 4.4 g/dL (3.2-4.8); Alkaline Phosphatase 57 U/L (46-116); Anion Gap 9 (5-15); Aspartate Aminotransferase 22 U/L (<34); BUN/Creatinine Ratio 21.4 (10.0-20.0); Blood Urea Nitrogen 15 mg/dL (9-23); Calcium 9.9 mg/dL (8.7-10.4); Carbon Dioxide 28 mmol/L (20-31); Glucose 91 mg/dL (74-106); LDL Cholesterol 76 mg/dL (< 100); Potassium 4.3 mmol/L (3.5-5.1); Total Protein 6.9 g/dL (5.7-8.2); Triglycerides 141 mg/dL (< 150)
[2024-12-29 12:11] LABS: Bilirubin, Total 0.5 mg/dL (0.2-1.0); Cholesterol 155 mg/dL (< 200)
[2024-12-29 12:13] LABS: Chloride 110 mmol/L (98-107); HDL Cholesterol 60 mg/dL (40-59); Sodium 147 mmol/L (136-145)
[2024-12-29 12:22] LABS: Urine Blood Negative /uL (Negative); Urine Clarity Clear (Clear); Urine Color Light-Yellow (Yellow); Urine Mucus FEW (None Seen); Urine Protein, UAD Negative (Negative); Urine Squamous Epithelial Cell FEW /hpf (<5); Urine Urobilinogen Normal (Negative); Urine WBC 4 /HPF (0-5); Urine pH 5.5 (5.0-9.0)
== END 2024-12-29 17:00 | disposition home or self-care (01) ==
LOC: LAB 11:18
PROVIDERS: ATTEND Internal Medicine
DX: I12.9 Hypertensive chronic kidney disease with stage 1 through stage 4 chronic kidney disease, or unspecified chronic kidney disease (principal); N18.2 Chronic kidney disease, stage 2 (mild); D48.5 Neoplasm of uncertain behavior of skin; Z13.1 Encounter for screening for diabetes mellitus; Z00.01 Encounter for general adult medical examination with abnormal findings
CPT/HCPCS: 36415; 80053; 80061; 81001; 83036; 84439; 84443; 85025